=== PATIENT | female | born 1935 | race Caucasian/White ===

== ENCOUNTER 2018-01-21 10:43 | Outpatient (REF) | payer MEDICARE, SELFPAY ==
[2018-01-21 22:56] LABS: Bacteria Packed HPF (Negative); Epithelial Cells Few HPF (Negative); RBC Negative (0-2)
[2018-01-21 22:57] LABS: C & S Indicated? Yes; Casts Negative LPF (Negative); Crystals Negative HPF (Negative); Mucus Negative (Negative)
[2018-01-23 12:43] LABS: Chlamydia Result Negative; GC Result Negative; Specimen Description URINE
== END 2018-01-21 11:03 ==
LOC: NCHCN 10:43
PROVIDERS: PCP Nurse Practitioner Family; Visit Provider Registered Nurse
DX: R50.9 Fever, unspecified (principal); R82.90 Unspecified abnormal findings in urine; D50.9 Iron deficiency anemia, unspecified; Z11.3 Encounter for screening for infections with a predominantly sexual mode of transmission
CPT/HCPCS: 87077; 87491; 87591; 81015; 87086; 87186